=== PATIENT | female | born 1970 | race Caucasian/White ===

== ENCOUNTER 2017-10-09 06:19 | Inpatient (IN) | payer SELFPAY ==
[~2017-10-09] VITALS: Ht 160 cm; Wt 95.8 kg
--- NOTE | ~2017-10-09 | EKG ---
[place], [place] ELECTROCARDIOGRAM REPORT NAME: KENDAL CHAPARRO UNIT #: [id number] ROOM: 412 DOCTOR: CARIE BADILLO,SOFYA BIRTHDATE: [birth year] DOS: 10/09/2017 TIME: 0956 hours. IMPRESSION: 1. Sinus rhythm. 2. Low voltage complexes in the precordial leads. 3. Nonspecific ST-T changes. 4. Normal QT interval. SOFYA DARNELL MD CM:EKGRPT:ELECTROCARDIOGRAM REPORT 1209 1224 SOFYA DARNELL MD
--- NOTE | ~2017-10-09 | EKG ---
[place], [place] ELECTROCARDIOGRAM REPORT NAME: KENDAL CHAPARRO UNIT #: [id number] ROOM: 412 DOCTOR: CARIE BADILLO,SOFYA BIRTHDATE: [birth year] DOS: 10/09/2017 TIME: 0748 hours. IMPRESSION: 1. Sinus rhythm, sinus tachycardia. 2. Nonspecific ST-T changes. 3. Normal QT interval. SOFYA DARNELL MD CM:EKGRPT:ELECTROCARDIOGRAM REPORT 1209 1232 SOFYA DARNELL MD
--- NOTE | ~2017-10-09 | EKG ---
[place], [place] ELECTROCARDIOGRAM REPORT NAME: KENDAL CHAPARRO UNIT #: [id number] ROOM: 412 DOCTOR: CARIE BADILLO,SOFYA BIRTHDATE: [birth year] DOS: 10/09/2017 TIME: 1303 hours. IMPRESSION: 1. Sinus rhythm. 2. Septal T-wave inversion, nondiagnostic. 3. Nondiagnostic Q-waves in the inferior leads. 4. Normal QT interval. SOFYA DARNELL MD CM:EKGRPT:ELECTROCARDIOGRAM REPORT 1202 1219 SOFYA DARNELL MD
[~2017-10-09 06:19] MED LIST: ACETAMINOPHEN-H1 TA2 PO; AUGMENTIN 875875 MG PO; CLINDAMYCIN HC300 MG PO; CLINDAMYCIN300 MG PO; DOXYCYCLINE HY100 M3 PO; DOXYCYCLINE100 M3 PO; FLAX OIL1000 M1 PO; LAMISIL250 MG PO; Lotrimin 1%15 GM T; MULTIVITAMIN1 TA1 PO; NYSTATIN CREAM15 GM T; NYSTATIN1 EAC1 MC; Nystatin Ointme30 GM T; PRAVASTATIN SOD40 MG PO; TYLENOL325 M2 PO; VIBRAMYCIN100 MG PO
[2017-10-09 06:24] VITALS: BP 152/96
[2017-10-09 07:01] LABS: BASO % 0.4 % (0.0-1.0); EOS # 0.1 10*3/uL (0.0-0.4); HEMATOCRIT 41.9 % (37.0-47.0); HEMOGLOBIN 14.7 g/dl (12.0-16.0); LYMPH # 0.7 10*3/uL (1.3-4.4); LYMPH % 6.9 % (27.0-41.0); MEAN CELL VOLUME 85.5 fl (81.0-99.0); MEAN CORPUSCULAR HGB CONC 35.1 g/dl (33.0-37.0); MEAN PLATELET VOLUME 9.6 fl (9.6-12.3); MONO # 0.5 10*3/uL (0.1-1.0); NEUT # 9.2 10*3/uL (2.3-7.9); NEUT % 86.3 % (47.0-73.0); PLATELET COUNT AUTOMATED 199 10*3/uL (130-400); RED CELL DISTRI WIDTH 12.2 % (0-14.5); WHITE BLOOD COUNT 10.7 10*3/uL (4.8-10.8)
[2017-10-09 07:32] LABS: ALBUMIN 3.8 gm/dl (3.1-4.5); ALKALINE PHOSPHATASE 49 U/L (45-117); BUN 11 mg/dl (7-24); CHLORIDE 103 mmol/L (98-107); CREATININE 1.06 mg/dL (0.55-1.02); SGOT/AST 22 IU/L (3-35); SGPT/ALT 36 U/L (12-78); SODIUM 138 mmol/L (136-145); TOTAL PROTEIN 7.3 gm/dL (6.4-8.2)
--- NOTE | 2017-10-09 07:36 | NUR ---
PATIENT PROVIDED WITH URINE SPECIMEN CONTAINER. AMBULATED TO BATHROOM, GAIT STEADY. XRAY AT BEDSIDE. CONDITION STABLE.
[2017-10-09 07:38] LABS: ACT PARTIAL THROMBO TIME 25.7 SECONDS (20.8-31.5)
[2017-10-09 07:47] LABS: TROPONIN I < 0.015 ng/ml (<0.045)
[2017-10-09 08:02] LABS: BILIRUBIN NEGATIVE (NEGATIVE); BLOOD 3+ (NEGATIVE); CLARITY SL CLOUDY (CLEAR); COLOR YELLOW (YELLOW); GLUCOSE NEGATIVE (NEGATIVE); KETONE NEGATIVE (NEGATIVE); LEUKO ESTERASE NEGATIVE (NEGATIVE); NITRITE NEGATIVE (NEGATIVE); SPECIFIC GRAVITY <= 1.005 (1.005-1.030); UROBILINOGEN 0.2 E.U./dl (0.2-1.0)
--- NOTE | 2017-10-09 08:26 | NUR ---
PT TRANSPORTED TO ULTRASOUND VIA CART. CONDITION STABLE.
--- NOTE | 2017-10-09 08:42 | NUR ---
PATIENT RETURNED FROM ULTRASOUND. CONDITION STABLE.
[2017-10-09 09:02] VITALS: BP 131/75
--- NOTE | 2017-10-09 09:13 | NUR ---
A 47, admitted to , under the services of OLAYINKA Del Valle DO with a diagnosis of CELLULITIS AND CHEST HEAVINESS. Chief complaint is CELLULITIS AND CHEST HEAVINESS. Patient arrived via bed from ER. Monitor applied. Initial assessment completed. Vital signs taken and recorded. OLAYINKA DEL VALLE DO notified of admission to the unit. Orders received. See assessment for past medical history, medications and allergies. Patient and/or family oriented to unit. [facility]. Clothing/patient valuable form completed. CAROLYNE MENDIETA
[2017-10-09 09:16] VITALS: BP 131/75
--- NOTE | 2017-10-09 09:26 | NUR ---
PT DENIES TAKING ANY HOME MEDS. MED REC UPDATED.
--- NOTE | 2017-10-09 09:33 | NUR ---
DR. CLARK IN TO SEE PATIENT. PT DECLINES ANY HOME MEDICAIONS. A 47, admitted to 4E, under the services of OLAYINKA Del Valle DO with a diagnosis of CELLULITIS RIGHT LEG. Chief complaint is REDNESS TO RIGHT LEG. Patient arrived via stretcher from ER. Monitor applied. Initial assessment completed. Vital signs taken and recorded. OLAYINKA DEL VALLE DO notified of admission to the unit. Orders received. See assessment for past medical history, medications and allergies. Patient and/or family oriented to unit. visitation policy reviewed. Clothing/patient valuable form completed. MORRIS HOOKS
--- NOTE | 2017-10-09 09:33 | NUR ---
DR. CARO IN TO SEE THE PATIENT
[2017-10-09 12:00] VITALS: BP 117/73
--- NOTE | 2017-10-09 13:27 | NUR ---
PT COMPLAINS OF FEELING FLUSHED FEELING. FACE IS RED. NO RASH/HIVES NOTED. VANCOMYCIN COMPLETED RECENTLY
--- NOTE | 2017-10-09 14:30 | NUR ---
FLUSH FEELING HAS RESOLVED. PT WITHOUT COMPLAINTS
--- NOTE | 2017-10-09 15:43 | NUR ---
PT COMPLAIN OF HEADACHE, TYLENOL GIVEN. SEE MAR. WILL MONITOR FOR EFFECTIVENESS
[2017-10-09 16:00] VITALS: BP 139/84
--- NOTE | 2017-10-09 16:30 | NUR ---
PT STATES THAT HEADACHE RESOLVED
--- NOTE | 2017-10-09 19:25 | NUR ---
ASSUMED CARE OF PT AT THIS TIME, CALL LIGHT WITH IN REACH
[2017-10-09 20:00] VITALS: BP 114/81
--- NOTE | 2017-10-09 21:04 | NUR ---
PT C/O H/A REQUESTED AND ADMINSITERED TYLENOL 650MG PO PRN PER ORDERS WILL MONITOR EFFECTS, CALL LIGHT WITH IN REACH
--- NOTE | 2017-10-09 22:30 | NUR ---
PRN TYLENOL EFFECTIVE AT THIS TIME, PT NO LONGER C/O H/A. CALL LIGHT WITH IN REACH
[2017-10-10] VITALS: BP 109/54; BP 129/78
[2017-10-10 06:30] LABS: BASO # 0.1 10*3/uL (0.0-0.1); BASO % 0.8 % (0.0-1.0); EOS # 0.2 10*3/uL (0.0-0.4); EOS % 2.7 % (1.0-4.0); HEMATOCRIT 41.9 % (37.0-47.0); HEMOGLOBIN 14.4 g/dl (12.0-16.0); LYMPH # 1.2 10*3/uL (1.3-4.4); LYMPH % 17.8 % (27.0-41.0); MEAN CORPUSCULAR HGB 30.7 pg (27.0-31.0); MEAN CORPUSCULAR HGB CONC 34.4 g/dl (33.0-37.0); MEAN PLATELET VOLUME 9.8 fl (9.6-12.3); MONO # 0.5 10*3/uL (0.1-1.0); MONO % 7.1 % (3.0-9.0); NEUT # 4.7 10*3/uL (2.3-7.9); NEUT % 71.1 % (47.0-73.0); PLATELET COUNT AUTOMATED 182 10*3/uL (130-400); RED BLOOD COUNT 4.69 10*6/uL (4.10-5.10); RED CELL DISTRI WIDTH 12.7 % (0-14.5); WHITE BLOOD COUNT 6.6 10*3/uL (4.8-10.8)
[2017-10-10 06:31] LABS: ALBUMIN 3.1 gm/dl (3.1-4.5); BUN 7 mg/dl (7-24); CHLORIDE 108 mmol/L (98-107); CREATININE 0.79 mg/dL (0.55-1.02); POTASSIUM 3.7 mmol/L (3.5-5.1); SGOT/AST 24 IU/L (3-35); SGPT/ALT 37 U/L (12-78); SODIUM 141 mmol/L (136-145); TOTAL PROTEIN 6.4 gm/dL (6.4-8.2)
[2017-10-10 06:34] LABS: MEAN CELL VOLUME 89.3 fl (81.0-99.0)
[2017-10-10 06:37] LABS: ALKALINE PHOSPHATASE 44 U/L (45-117); CHOLESTEROL 147 mg/dL (<200); HDL CHOLESTEROL 39 mg/dl (40-60); LDL CHOLESTEROL 68 mg/dL (9-159); PHOSPHOROUS 2.3 mg/dL (2.5-4.9); TRIGLYCERIDES 199 mg/dl (<150); VLDL CHOLESTEROL 40 mg/dL (6-40)
[2017-10-10 08:00] VITALS: BP 136/89
[2017-10-10 08:32] LABS: VITAMIN D, 25-HYDROXY 10.4 ng/mL (30-100)
[2017-10-10 12:00] VITALS: BP 130/76
[2017-10-10 16:00] VITALS: BP 141/87
[2017-10-10 20:00] VITALS: BP 134/81
[2017-10-11] VITALS: BP 117/73
[2017-10-11 08:00] VITALS: BP 131/83
--- NOTE | 2017-10-11 09:00 | NUR ---
Director Of Speech Pathology in to talk to patient. Patient states lives at home with boyfriend. There are few steps in the home. Physician: jennifer mooney Pharmacy: [facility] Home health services: none Patient's level of ADLs: INDEPENDENT Patient has working utilities: all working DME: none Follow-up physician's appointment after d/c: will be made by hospitalist nurse director upon discharge Does patient want to access PORTAL?: no Discharge plan discussed with patient, patient lives at home with boyfriend, she is independent in adls and ambulation patient states she will be going back home when able and denies any home needs. MARLYN CHEN
[2017-10-11 12:00] VITALS: BP 140/83
[2017-10-11] MEDS ORDERED: VITAMIN D50000 UNIT PO (12:26)
[2017-10-11] MEDS ORDERED: CLINDAMYCIN HC300 MG PO (12:26)
--- NOTE | 2017-10-11 15:07 | NUR ---
Discharge instructions reviewed with patient/family. Patient receptive and verbalizes understanding. Follow-up care arranged. Written instructions given to patient/family. JANE OLIVEIRA
== END 2017-10-11 15:07 | disposition home or self-care (01) | DRG 872 ==
LOC: ED 06:19 → 4E 07:20 → EDHOLD 07:20 → 4E 07:53
PROVIDERS: Emergency Medicine; Internal Medicine Nephrology; Student in an Organized Health Care Education/Training Program; ADMIT Internal Medicine
DX: A41.9 Sepsis, unspecified organism (principal); E44.1 Mild protein-calorie malnutrition; L03.115 Cellulitis of right lower limb; E66.09 Other obesity due to excess calories; R07.89 Other chest pain; M79.604 Pain in right leg; R73.9 Hyperglycemia, unspecified; E55.9 Vitamin D deficiency, unspecified; Z91.011 Allergy to milk products; Z91.013 Allergy to seafood; Z88.8 Allergy status to other drugs, medicaments and biological substances; Z91.018 Allergy to other foods; Z68.37 Body mass index [BMI] 37.0-37.9, adult; Z79.2 Long term (current) use of antibiotics; Z79.899 Other long term (current) drug therapy; Z87.440 Personal history of urinary (tract) infections; Z83.3 Family history of diabetes mellitus; Z80.1 Family history of malignant neoplasm of trachea, bronchus and lung; Z82.49 Family history of ischemic heart disease and other diseases of the circulatory system